=== PATIENT | male | born 1940 | race Caucasian/White ===

== ENCOUNTER 2021-05-31 19:12 | Emergency (ER) | payer MEDICARE, OTHER ==
[2021-05-31] MEDS ORDERED: Sodium Chloride 0.9% 10 ML Syringe FLUSH PRN (21:08)
[2021-05-31] MEDS ORDERED: Sodium Chloride 0.9% 2.5 ML Syringe FLUSH PRN (21:08)
--- NOTE | 2021-05-31 21:11 | EDM.PDOC ---
ED HPI GENERAL MEDICAL PROBLEM - General Chief Complaint: Abdominal Pain Stated Complaint: STOMACHE PAINS Time Seen by Provider: 05/31/21 20:56 - History of Present Illness INITIAL COMMENTS - FREE TEXT/NARRATIVE: History of present illness: [] Patient is not a good historian because of dementia. The family is here. They say that essentially almost every night for a month he has abdominal pain that significant but not causing him to cry bend over to get colicky and rock or complain of any needs to be rushed to the emergency department. He has not seen any primary doctor. He is has no nausea vomiting fever chills constipation or diarrhea. His urine outflow is normal. He does not complain of any mass. Review of systems: As per history of present illness and below otherwise all systems reviewed and negative. Past medical history: As per history of present illness and as reviewed below otherwise noncontributory. Surgical history: As per history of present illness and as reviewed below otherwise noncontributo ry. Social history: No reported history of drug or alcohol abuse. Family history: As per history of present illness and as reviewed below otherwise noncontributory. Physical exam: Constitutional - well developed, well-nourished and in no acute distress HEENT - normocephalic, no evidence of trauma - external nose and mouth normal - no mass in neck and no JVD - mucosae moist EYES - full EOM, PERRL, no icterus - no evidence of inflammation, injection, or drainage Respiratory - no respiratory distress, equal bilateral expansion, lungs clear to auscultation and no abnormal lung sounds Cardiovascular - Regular Rhythm with S1 and S2 appreciated and no murmur, gallop or rub. GI - abdomen soft-diffuse tenderness-without distension or organomegaly - normal bowel sounds - no guard or rebound no hernia normal external genitalia Musculoskeletal no gross deformity of long bones or joints - no tenderness, swelling or edema Neurologic - Alert and oriented times four - CN II-XII grossly intact - motor sensory and coordination symmetrically normal Psychiatric - appropriate mood and affect with normal thought content Hematologic - No petechiae or purpura - mucosa appropriate color and sclera not pale - normal nail bed color and refill Integument - no rash or evidence of trauma - normal turgor Diagnostics: [] Therapeutics: [] Impression: [] Plan: [] Definitive disposition and diagnosis as appropriate pending reevaluation and review of above. Lower Abdomen Pain Score (Numeric/FACES): 0 - Related Data Allergies Allergy/AdvReac Type Severity Reaction Status Date / Time No Known Allergies Allergy Verified 05/31/21 20:55 Social & Family History - Tobacco Use Tobacco Use Status *Q: Never Tobacco User Second Hand Smoke Exposure: No - Recreational Drug Use Recreational Drug Use: No ED ROS GENERAL - Review of Systems Review Of Systems: Comprehensive ROS is negative, except as noted in HPI. ED EXAM, GENERAL - Physical Exam Exam: See Below Free Text/Narrative:: My physical exam is in the HPI Course - Vital Signs Text/Narrative:: CT of the abdomen showed nothing that needed emergency intervention. There is a nodule in the prostate that needs to be evaluated by urology. Last Recorded V/S: Last Vital Signs Temp 36.4 C 05/31/21 20:50 Pulse 81 05/31/21 22:20 Resp 20 05/31/21 22:20 BP 123/67 05/31/21 22:20 Pulse Ox 96 05/31/21 22:20 - Orders/Labs/Meds Orders: Active Orders 24 hr Category Date Time Status Sodium Chloride 0.9% [Saline Flush] Med 05/31/21 21:08 Active 10 ml FLUSH ASDIRECTED PRN Sodium Chloride 0.9% [Saline Flush] Med 05/31/21 21:08 Active 2.5 ml FLUSH ASDIRECTED PRN Saline Lock Insert [OM.PC] Stat Oth 05/31/21 21:08 Ordered Medication Orders Sodium Chloride (Sodium Chloride 0.9% 10 Ml Syringe) 10 ml FLUSH ASDIRECTED PRN PRN Reason: Keep Vein Open Sodium Chloride (Sodium Chloride 0.9% 2.5 Ml Syringe) 2.5 ml FLUSH ASDIRECTED PRN PRN Reason: Keep Vein Open Labs: Laboratory Tests 05/31/21 05/31/21 05/31/21 Range/Units 21:00 21:25 21:25 WBC 9.93 (4.0-11.0) K/uL RBC 4.63 (4.50-5.90) M/uL Hgb 14.8 (13.0-17.0) g/dL Hct 43.5 (38.0-50.0) % MCV 94.0 (80.0-98.0) fL MCH 32.0 (27.0-32.0) pg MCHC 34.0 (31.0-37.0) g/dL RDW Std Deviation 45.7 (28.0-62.0) fl RDW Coeff of Urban 14 (11.0-15.0) % Plt Count 207 (150-400) K/uL MPV 10.30 (7.40-12.00) fL Neut % (Auto) 80.0 (48.0-80.0) % Lymph % (Auto) 11.8 L (16.0-40.0) % [place] % (Auto) 6.2 (0.0-15.0) % Eos % (Auto) 1.9 (0.0-7.0) % Baso % (Auto) 0.1 (0.0-1.5) % Neut # (Auto) 7.9 H (1.4-5.7) K/uL Lymph # (Auto) 1.2 (0.6-2.4) K/uL [place] # (Auto) 0.6 (0.0-0.8) K/uL Eos # (Auto) 0.2 (0.0-0.7) K/uL Baso # (Auto) 0.0 (0.0-0.1) K/uL Nucleated RBC % 0.0 /100WBC Nucleated RBCs # 0 K/uL Sodium 137 (136-148) mmol/L Potassium 4.9 (3.5-5.1) mmol/L Chloride 102 (98-107) mmol/L Carbon Dioxide 27.1 (21.0-32.0) mmol/L BUN 16 (7.0-18.0) mg/dL Creatinine 1.1 (0.8-1.3) mg/dL Est Cr Clr Drug Dosing 55.75 mL/min Estimated GFR (MDRD) > 60.0 ml/min Glucose 125 H (74-106) mg/dL Lactic Acid (0.4-2.0) mmol/L Calcium 8.2 L (8.5-10.1) mg/dL Total Bilirubin 0.4 (0.2-1.0) mg/dL AST 31 (15-37) IU/L ALT 22 (14-63) IU/L Alkaline Phosphatase 130 H (46-116) U/L Total Protein 6.6 (6.4-8.2) g/dL Albumin 3.4 (3.4-5.0) g/dL Globulin 3.2 (2.6-4.0) g/dL Albumin/Globulin Ratio 1.1 (0.9-1.6) Lipase 345 (73-393) U/L Urine Color YELLOW Urine Appearance CLEAR Urine pH 6.0 (5.0-8.0) Ur Specific [place] 1.025 (1.001-1.035) Urine Protein NEGATIVE (NEGATIVE) mg/dL Urine Glucose (UA) NEGATIVE (NEGATIVE) mg/dL Urine Ketones NEGATIVE (NEGATIVE) mg/dL Urine Occult Blood NEGATIVE (NEGATIVE) Urine Nitrite NEGATIVE (NEGATIVE) Urine Bilirubin NEGATIVE (NEGATIVE) Urine Urobilinogen 0.2 (<2.0) EU/dL Ur Leukocyte Esterase NEGATIVE (NEGATIVE) 05/31/21 Range/Units 21:25 WBC (4.0-11.0) K/uL RBC (4.50-5.90) M/uL Hgb (13.0-17.0) g/dL Hct (38.0-50.0) % MCV (80.0-98.0) fL MCH (27.0-32.0) pg MCHC (31.0-37.0) g/dL RDW Std Deviation (28.0-62.0) fl RDW Coeff of Urban (11.0-15.0) % Plt Count (150-400) K/uL MPV (7.40-12.00) fL Neut % (Auto) (48.0-80.0) % Lymph % (Auto) (16.0-40.0) % [place] % (Auto) (0.0-15.0) % Eos % (Auto) (0.0-7.0) % Baso % (Auto) (0.0-1.5) % Neut # (Auto) (1.4-5.7) K/uL Lymph # (Auto) (0.6-2.4) K/uL [place] # (Auto) (0.0-0.8) K/uL Eos # (Auto) (0.0-0.7) K/uL Baso # (Auto) (0.0-0.1) K/uL Nucleated RBC % /100WBC Nucleated RBCs # K/uL Sodium (136-148) mmol/L Potassium (3.5-5.1) mmol/L Chloride (98-107) mmol/L Carbon Dioxide (21.0-32.0) mmol/L BUN (7.0-18.0) mg/dL Creatinine (0.8-1.3) mg/dL Est Cr Clr Drug Dosing mL/min Estimated GFR (MDRD) ml/min Glucose (74-106) mg/dL Lactic Acid 1.4 (0.4-2.0) mmol/L Calcium (8.5-10.1) mg/dL Total Bilirubin (0.2-1.0) mg/dL AST (15-37) IU/L ALT (14-63) IU/L Alkaline Phosphatase (46-116) U/L Total Protein (6.4-8.2) g/dL Albumin (3.4-5.0) g/dL Globulin (2.6-4.0) g/dL Albumin/Globulin Ratio (0.9-1.6) Lipase (73-393) U/L Urine Color Urine Appearance Urine pH (5.0-8.0) Ur Specific [place] (1.001-1.035) Urine Protein (NEGATIVE) mg/dL Urine Glucose (UA) (NEGATIVE) mg/dL Urine Ketones (NEGATIVE) mg/dL Urine Occult Blood (NEGATIVE) Urine Nitrite (NEGATIVE) Urine Bilirubin (NEGATIVE) Urine Urobilinogen (<2.0) EU/dL Ur Leukocyte Esterase (NEGATIVE) Meds: Medications Generic Name Dose Route Start Last Admin Trade Name Freq PRN Reason Stop Dose Admin Sodium Chloride 10 ml 05/31/21 21:08 Sodium Chloride 0.9% 10 Ml Syringe FLUSH ASDIRECTED PRN Keep Vein Open Sodium Chloride 2.5 ml 05/31/21 21:08 Sodium Chloride 0.9% 2.5 Ml Syringe FLUSH ASDIRECTED PRN Keep Vein Open Discontinued Medications Generic Name Dose Route Start Last Admin Trade Name Freq PRN Reason Stop Dose Admin Iopamidol 100 ml 05/31/21 22:05 05/31/21 22:50 Iopamidol 755 Mg/Ml 100 Ml Bottle IVPUSH 05/31/21 22:06 100 ml ONETIME ONE Administration Departure - Departure Time of Disposition: 23:30 Disposition: Home, Self-Care 01 Condition: Good Clinical Impression: Abdominal pain - Discharge Information Referrals: Justin Easley MD [Primary Care Provider] - Leila Resendiz DO [Ordering Only Provider] - Forms: ED Department Discharge Additional Instructions: Patient needs to be seen by urology because of the mass in the prostate that is most likely benign but certainly needs to be reevaluated. If the patient continues to have pain the primary care will refer him to gastroenterology or he can have endoscopy by the surgeons here in town. [facility] - General Surgery Professional [address], [address] [place] [address] The following information is given to patients seen in the emergency department who are being discharged to home. This information is to outline your options for follow-up care. We provide all patients seen in our emergency department with a follow-up referral. The need for follow-up, as well as the timing and circumstances, are variable depending upon the specifics of your emergency department visit. If you don't have a primary care physician on staff, we will provide you with a referral. We always advise you to contact your personal physician following an emergency department visit to inform them of the circumstance of the visit and for follow-up with them and/or the need for any referrals to a consulting specialist. The emergency department will also refer you to a specialist when appropriate. This referral assures that you have the opportunity for follow-up care with a specialist. All of these measure are taken in an effort to provide you with optimal care, which includes your follow-up. Under all circumstances we always encourage you to contact your private physician who remains a resource for coordinating your care. When calling for follow-up care, please make the office aware that this follow-up is from your recent emergency room visit. If for any reason you are refused follow-up, please contact the [facility] Emergency Department at and asked to speak to the emergency department charge nurse. Sepsis Event Note (ED) - Focused Exam Vital Signs: Vital Signs Temp Pulse Resp BP Pulse Ox 05/31/21 22:20 81 20 123/67 96 05/31/21 20:50 36.4 C 76 16 146/80 H 95 - My Orders Last 24 Hours: My Active Orders 08/25/21 21:08 Sodium Chloride 0.9% [Saline Flush] 10 ml FLUSH ASDIRECTED PRN Sodium Chloride 0.9% [Saline Flush] 2.5 ml FLUSH ASDIRECTED PRN Saline Lock Insert [OM.PC] Stat - Assessment/Plan Last 24 Hours: My Active Orders 05/31/21 21:08 Sodium Chloride 0.9% [Saline Flush] 10 ml FLUSH ASDIRECTED PRN Sodium Chloride 0.9% [Saline Flush] 2.5 ml FLUSH ASDIRECTED PRN Saline Lock Insert [OM.PC] Stat
[2021-05-31 21:55] LABS: BLOOD UREA NITROGEN,BUN 16 mg/dL (7.0-18.0); CARBON DIOXIDE,CO2 27.1 mmol/L (21.0-32.0); CHLORIDE,CL 102 mmol/L (98-107); GLUCOSE RANDOM 125 mg/dL (74-106); LIPASE 345 U/L (73-393); POTASSIUM,K 4.9 mmol/L (3.5-5.1); SODIUM,NA 137 mmol/L (136-148)
[2021-05-31] MEDS ORDERED: Iopamidol 755 Mg/ML 100 ML Bottle IVPUSH ONE (22:05)
--- NOTE | 2021-05-31 23:27 | CT ---
INDICATION: Abdominal pain. COMPARISON: None available TECHNIQUE: CT examination of the abdomen and pelvis was performed with the uneventful intravenous administration of 100 cc of Isovue 370 while 2.5 mm thick axial sections were obtained from the lung bases through the pubic symphysis. Oral contrast was not administered. Please note that all CT scans at this facility use dose modulation, iterative reconstruction, and/or weight-based dosing when appropriate to reduce radiation dose to as low as reasonably achievable. FINDINGS: There is a moderate amount of fluid seen throughout the colon in the abdomen, nonspecific. There is formed fecal material in the sigmoid colon and rectum. In the abdomen, the liver, spleen, pancreas, and adrenals are normal in appearance. The kidneys are normal in appearance. The gallbladder is normal in appearance. The abdominal aorta is normal in caliber with no sign of dilatation. There is no sign of retroperitoneal mass or adenopathy. The stomach, loops of small bowel, and right colon in the abdomen are normal in appearance. There is severe diverticulosis of the descending colon with no sign of diverticulitis. In the pelvis, the appendix is normal in appearance with no sign of inflammatory process. There is severe sigmoid diverticulosis without evidence of diverticulitis. The loops of small bowel and colon in the pelvis are otherwise normal in appearance. The prostate has a central TURP defect. It is moderately enlarged. There is a slightly dense nodule arising from the superior central prostate projecting into the base of the bladder measuring 11 millimeters in diameter. Prostate malignancy cannot be excluded. The urinary bladder is otherwise normal in appearance. There is no sign of pelvic or inguinal mass or adenopathy. There is a small right inguinal hernia containing fluid superiorly and fat inferiorly. There is no sign of herniation of bowel. There is a small fat containing left inguinal hernia. There is no sign of free air or free fluid in the abdomen or pelvis. There is moderate patchy density in the posterior lung bases, left greater than right, probably scarring from previous inflammatory disease. There are sternal wires from median sternotomy. Leads from a pacemaker terminate in the right atrium and right ventricle. There is mild triple-vessel coronary calcification. The heart is normal in size. There is moderate scoliosis of the upper lumbar spine convex towards the right. There is severe disc degenerative disease at L3-4, L4-5, and L5-S1 related to the scoliosis. Note is made of a lumbarized S1 segment. IMPRESSION: CT of the abdomen shows fluid distributed throughout the nondistended colon in the abdomen, nonspecific. Severe diverticulosis of the descending colon with no sign of diverticulitis. CT of the pelvis shows severe diverticulosis of the sigmoid colon with no sign of diverticulitis. TURP defect in moderately enlarged prostate. 11 millimeter nodule projects superiorly from the prostate into the urinary bladder, nonspecific. Cannot exclude prostate malignancy. Small bilateral inguinal hernias, containing fat and fluid on the right and only fat on the left. Please note that all CT scans at this facility use dose modulation, iterative reconstruction, and/or weight-based dosing when appropriate to reduce radiation dose to as low as reasonably achievable. Dictated by Yohan Serrato MD @ 05/31/2021 11:24:[address] Yohan Serrato @ May 31 2021 11:24PM
== END 2021-05-31 23:45 | disposition home or self-care (01) ==
LOC: MW.ED 19:12
DX: R10.9 Unspecified abdominal pain (principal); R10.817 Generalized abdominal tenderness
CPT/HCPCS: 36415; 74177; 80053; 81003; 83605; 83690; 85025; 99284; Q9967

== ENCOUNTER 2021-09-18 10:49 | Emergency (ER) | payer MEDICARE, OTHER ==
[2021-09-18] MEDS ORDERED: Sodium Chloride 0.9% 2.5 ML Syringe FLUSH PRN (11:01)
[2021-09-18] MEDS ORDERED: Sodium Chloride 0.9% 10 ML Syringe FLUSH PRN (11:01)
--- NOTE | 2021-09-18 11:32 | PCM.EKG ---
#1 Interpretation Time: 11:16 EKG Interpretation Comments: EKG: NSR, nonspecific ST/T changes, Rate -71
[2021-09-18 12:13] LABS: BLOOD UREA NITROGEN,BUN 17 mg/dL (7.0-18.0); CARBON DIOXIDE,CO2 27.1 mmol/L (21.0-32.0); CHLORIDE,CL 101 mmol/L (98-107); GLUCOSE RANDOM 153 mg/dL (74-106); POTASSIUM,K 4.6 mmol/L (3.5-5.1); SODIUM,NA 138 mmol/L (136-148)
--- NOTE | 2021-09-18 12:39 | CT ---
INDICATION: Head injury. Fell. TECHNIQUE: Scanning of the head was performed without IV contrast material. Coronal and sagittal reconstructions were obtained. COMPARISON: Today`s cervical spine CT. FINDINGS: No acute intracranial hemorrhage or positive mass effect is demonstrated. A left forehead laceration is noted. No calvarial or obvious facial fracture is identified. The visualized paranasal and mastoid sinuses are clear. The ventricles and other subarachnoid spaces are within normal limits for the patient`s age. 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 There is patchy nonspecific decreased attenuation in the cerebral white matter which is most likely due to aging/chronic microvascular ischemic disease. IMPRESSION: 1. Negative for acute intracranial abnormality. 2. Left forehead laceration. 3. 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 4. Patchy nonspecific cerebral white matter disease which is most likely due to aging/chronic microvascular ischemia. Please note that all CT scans at this facility use dose modulation, iterative reconstruction, and/or weight-based dosing when appropriate to reduce radiation dose to as low as reasonably achievable. Dictated by Joaquín Ding MD @ 09/18/2021 12:38:15 PM (Electronically Signed)
--- NOTE | 2021-09-18 12:49 | CT ---
INDICATION: Neck injury. Fell. TECHNIQUE: Volumetric helical scanning of the cervical spine was performed without contrast material. Sagittal and coronal reconstructions were also obtained. COMPARISON: Today`s head CT. FINDINGS: Acute fracture of the odontoid base (type 2) is demonstrated with 5 mm posterior displacement of the odontoid with respect to the C2 body. Acute nondisplaced lateral C1 arch fractures are demonstrated bilaterally. No other fracture or subluxation is noted Multilevel spondylosis is demonstrated. IMPRESSION: 1. Acute type 2 odontoid fracture with 5 mm posterior displacement of the odontoid with respect to the C2 body. 2. Acute nondisplaced lateral C1 arch fractures bilaterally. 3. Multilevel spondylosis. These findings were discussed with Nessa Long PA-C at 12:45 p.m. on 09/18/2021. Please note that all CT scans at this facility use dose modulation, iterative reconstruction, and/or weight-based dosing when appropriate to reduce radiation dose to as low as reasonably achievable. Dictated by Joaquín Ding MD @ 09/18/2021 12:47:36 PM (Electronically Signed)
--- NOTE | 2021-09-18 13:12 | CR ---
INDICATION: Trauma COMPARISON: None TECHNIQUE: Single view AP portable chest radiograph FINDINGS: TUBES AND LINES: Left-sided pacer with leads in the right atrium and the right ventricle. HEART AND MEDIASTINUM: Sternotomy. Normal size heart.. LUNGS AND PLEURAL SPACES: Patchy ground-glass opacities in the right midlung favor inflammatory over traumatic.No pleural effusion or pneumothorax OSSEOUS STRUCTURES: Demineralization and degenerative change. No visible fracture or destructive process IMPRESSION: 1. Pacer. Sternotomy. 2. Mild patchy ground-glass opacities in the right midlung favor inflammatory over traumatic. 3. No visible fracture or destructive process involving the visualized osseous structures Dictated by All Thomas MD @ 09/18/2021 1:10:46 PM (Electronically Signed)
--- NOTE | 2021-09-18 13:16 | CR ---
Indication: Fall with pain. Technique: Pelvis AP 1 views. Comparison: None. Findings: Bones: Alignment is normal. No fractures or bone lesions. Joint spaces: Moderate bilateral hip joint osteoarthritis. No other specific finding to explain pain. Soft tissues: Unremarkable. Dictated by Edd Cho MD @ 09/18/2021 1:15:47 PM (Electronically Signed)
[2021-09-18] MEDS ORDERED: Lidocaine 1% with EPINEPHrine 1:100,000 20 ML MDV ONE (13:19)
--- NOTE | 2021-09-18 13:23 | CR ---
Indication: Fall with pain. Technique: Bilateral knee 4 views. Comparison: None. Findings: Bones: Alignment is normal. No fractures or bone lesions. Joint spaces: Unremarkable. No significant degenerative changes and no joint effusion. Soft tissues: Unremarkable. Impression: No sign of acute injury. Dictated by Edd Cho MD @ 09/18/2021 1:21:13 PM (Electronically Signed)
[2021-09-18] MEDS ORDERED: Morphine 2 MG/ML SYRINGE IVPUSH ONE (13:56)
[2021-09-18] MEDS ORDERED: Ondansetron 4 MG/2 ML SDV IVPUSH ONE (13:56)
[2021-09-18] MEDS ORDERED: Bacitracin Oint 1 GM U/D Packet ONE (14:05)
[2021-09-18] MEDS ORDERED: Bacitracin Oint 1 GM U/D Packet TOP STA (14:25)
[2021-09-18] MEDS ORDERED: Lidocaine 1% with EPINEPHrine 1:100,000 20 ML MDV INJECT ONE (15:00)
--- NOTE | 2021-09-18 15:07 | EDM.PDOC ---
ED HPI GENERAL MEDICAL PROBLEM - General Chief Complaint: Head Injury Stated Complaint: fall, hit head Time Seen by Provider: 09/18/21 10:50 Source of Information: Reports: Patient History Limitations: Reports: No Limitations - History of Present Illness INITIAL COMMENTS - FREE TEXT/NARRATIVE: HISTORY AND PHYSICAL: History of present illness: Patient is an 80-year-old male, with a history of type 2 diabetes, hyperlipidemia, and dementia, who presents emergency room today with concern of a fall. According to who witnessed the fall, patient had got up to use the restroom. states that patient does have a limited gait at baseline and uses a cane. Patient did not use a cane to go to the bathroom and patient states that his legs felt weak and he fell forward. Patient's states he hit his forehead on the kitchen chair but did not lose consciousness. She states that she called the ambulance immediately but did sit him up from a laying position. Patient states that he has pain of his forehead and his neck and denies any other symptoms. Patient states that he is fully able to move his legs and arms and has no other resuscitative symptoms. states that patient is up-to-date on his tetanus vaccine within 5 years. Patient is not on any blood thinning medication. Patient denies fever, chills, chest pain, shortness of breath, or cough. Denies change in vision, syncope, or near syncope. Denies nausea, vomiting, abdominal pain, diarrhea, constipation, or dysuria. Has not noted any blood in urine or stool. Patient has been eating and drinking appropriately. Review of systems: As per history of present illness and below otherwise all systems reviewed and negative. Past medical history: As per history of present illness and as reviewed below otherwise noncontributory. Surgical history: As per history of present illness and as reviewed below otherwise noncontributory. Social history: See social history for further information Family history: As per history of present illness and as reviewed below otherwise noncontributory. Physical exam: General: Patient is alert, oriented, and in no acute distress. Patient laying comfortably on exam table. Patient is in a hard cervical collar via EMS. Vitals stable and reviewed by me. HEENT: There is a large 7 cm subcutaneous laceration of the forehead and a skin tear of the right cheek. There is also a small superficial abrasion at the bridge of the nose and left side of the cheek. Otherwise, atraumatic, normocephalic, pupils equal and reactive bilaterally, negative for conjunctival pallor or scleral icterus, mucous membranes moist, throat clear, neck supple, nontender, trachea midline. No drooling or trismus noted. No meningeal signs. No hot potato voice noted. Lungs: Clear to auscultation, breath sounds equal bilaterally, chest nontender. Heart: S1S2, regular rate and rhythm without overt murmur Abdomen: Soft, nondistended, nontender. Negative for masses or hepatospl enomegaly. Negative for costovertebral tenderness. Pelvis: Stable nontender. Genitourinary: Deferred. Rectal: Deferred. Skin: Intact, warm, dry. No lesions or rashes noted. Extremities: No obvious deformity of the complete spine. No step-offs, or crepitus to palpation of the complete spine. Patient does have tenderness to palpation of C1-C4 of the cervical spine but no remainder tenderness of the remainder spine. Patient is fully able to move all extremities with intact sensation of all extremities. Bilateral radial pulses are grossly intact. Bilateral dorsalis pedis and posterior tibial pulses are grossly intact. Otherwise, atraumatic, negative for cords or calf pain. Neurovascular unremarkable. Neuro: Awake, alert, oriented. Cranial nerves II through XII unremarkable. Cerebellum unremarkable. Motor and sensory unremarkable throughout. Exam nonfocal. Medical Decision Making: Patient is an 80-year-old male with a history of type 2 diabetes, hyperlipidemia, and dementia who presents emergency room today with concern of a fall. Upon arrival to the ED, via EMS, patient does have a hard cervical collar in place. Patient does complain of pain at the area of laceration of his fo rehead and his neck. On examination, patient does have a large 7 cm subcutaneous laceration of the forehead with adjacent skin tear of the right cheek and small superficial abrasion overlying the bridge of the nose and left side of the cheek. The large laceration bleeding so a pressure dressing applied. Patient does have tenderness of the cervical spine so will leave the hard collar in place and image head and neck CT. Will also obtain cardiac evaluation and pelvic XR due to fall. See Dr. Frost's dictation for specific EKG interpretation. Otherwise, normal sinus rhythm without STEMI. CBC mild derangements are unremarkable. CMP does show an elevation of glucose at 153, isolated elevation of alk phos at 133. Troponin negative. COVID-19 negative. Otherwise mild derangements of CMP unremarkable. Cervical spine CT does show an acute type II odontoid fracture with 5 mm posterior displacement of the odontoid with respect to the C2 body. Acute nondisplaced lateral C1 arch fracture bilaterally. Multilevel spondylosis. Head CT shows negative for acute intracranial abnormality. Left forehead laceration. 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 Patchy nonspecific cerebral white matter disease which is most likely due to aging/chronic microvascular ischemia. Pelvic x-ray shows no acute findings. Chest x-ray shows a pacer. Sternotomy. Mild patchy groundglass opacities in the right midlung favor inflammatory over traumatic. No visible fracture or destructive process involving the visualized osseous structures. Bilateral knees show no acute injury. [facility] at [facility] at [facility]. However, I did speak to Dr. Segura, neurosurgeon who states opioid management is alright to use with this fracture type. Also states that patient is able to sit up (patient is uncomfortable laying flat and requesting to sit up). Will give morphine and zofran. [facility] at [facility] I did speak to Dr. Chavez, ED provider at [facility]. Agreeable to transfer. Flight arranged. See procedure note below for suturing. Upon reevaluation of patient, he remains vitally stable and well-appearing on exam. Patient is much more comfortable with sitting with the head of the bed up. Hard cervical collar remains in place. Patient remains neurovascularly intact. Flight at bedside. Patient transferred to flight in stable condition. Diagnostics: CBC, CMP, UA, chest x-ray, troponin, head CT, cervical spine CT, 1 view chest x- ray, 1 view pelvis, bilateral knees Therapeutics: Saline lock, morphine, Zofran Impression: Acute odontoid fracture, type 2, unstable Head injury Forehead laceration Skin tear Superficial abrasions Fall Plan: Transfer to Dr. Chavez, ED at [facility] via flight\ Critical care time is exclusive of billable procedures and the time to perform these procedures. Critical care time was used to prevent vital system organ failure and deterioration. Critical care time includes bedside management and high-complexity decision making requiring my highest level of mental preparedness and attention. This includes reviewing the patient's chart and prior medical records, ordering and reviewing interpreting laboratory studies and imaging results, interpretation of vital signs and EKG, pulse oximetry, and discussion with the admitting team along with EMS and nursing staff. Patient presented with multiple critical lab values that required immediate intervention, acute respiratory failure requiring Bipap and immediate transfer to the ICU for additional close monitoring and continuation of treatment CC Time: 60 minutes Definitive disposition and diagnosis as appropriate pending reevaluation and review of above. face Pain Score (Numeric/FACES): 6 - Related Data Allergies Allergy/AdvReac Type Severity Reaction Status Date / Time No Known Allergies Allergy Verified 09/18/21 10:59 Home Meds: Home Meds Famotidine 40 mg PO BEDTIME 09/18/21 [History] Metoprolol Succinate 25 mg PO DAILY 09/18/21 [History] QUEtiapine Fumarate [Quetiapine Fumarate] 12.5 - 25 mg PO DAILY 09/18/21 [History] atorvaSTATin Calcium [Atorvastatin Calcium] 20 mg PO DAILY 09/18/21 [History] metFORMIN HCl [Metformin HCl] 500 mg PO DAILY 09/18/21 [History] Past Medical History HEENT History: Reports: Impaired Vision Cardiovascular History: Reports: High Cholesterol, Hypertension Neurological History: Reports: Alzheimers Disease, Other (See Below) Other Neuro History: dementia Psychiatric History: Reports: Alzheimers Disease, Dementia Endocrine/Metabolic History: Reports: Diabetes, Type II - Infectious Disease History Infectious Disease History: Reports: Chicken Pox, Measles ED ROS GENERAL - Review of Systems Review Of Systems: Comprehensive ROS is negative, except as noted in HPI. ED EXAM, GENERAL - Physical Exam Exam: See Below (see dictation) ED GENERAL MEDICAL PROCEDURES - Laceration/Wound Repair Middle Forehead Lac/wound length in cm: 7 Appearance: Subcutaneous, Irregular, Clean Distal NVT: Neuro & Vascular Intact, No Tendon Injury Anesthetic Type: Local Local Anesthesia - Bupivicaine (Marcaine): 0.5% with EPI Local Anesthetic Volume: Other (10cc) Saline irrigation (cc's): 250 Exploration/Debridement/Repair: Wound Explored, Explored to Base, No Foreign Material Found Closed with: Sutures Suture Size: 5-0 # of Sutures: 14 Suture Type: Interrupted, Other (chromic gut) Drain Placement: No Sterile Dressing Applied: Provider Tetanus Status Addressed: Yes (up to date) Complications: No Course - Vital Signs Last Recorded V/S: Last Vital Signs Temp 98.1 F 09/18/21 15:02 Pulse 85 09/18/21 15:02 Resp 16 09/18/21 15:02 BP 134/75 09/18/21 15:02 Pulse Ox 97 09/18/21 15:02 - Orders/Labs/Meds Orders: Active Orders 24 hr Category Date Time Status Cardiac Monitoring [RC] . DIRECTED Care 09/18/21 11:01 Active CULTURE URINE [MREF] Stat Lab 09/18/21 14:49 Received Sodium Chloride 0.9% [Saline Flush] Med 09/18/21 11:01 Active 10 ml FLUSH ASDIRECTED PRN Sodium Chloride 0.9% [Saline Flush] Med 09/18/21 11:01 Active 2.5 ml FLUSH ASDIRECTED PRN Saline Lock Insert [OM.PC] Stat Oth 09/18/21 11:01 Ordered Medication Orders Sodium Chloride (Sodium Chloride 0.9% 10 Ml Syringe) 10 ml FLUSH ASDIRECTED PRN PRN Reason: Keep Vein Open Last Admin: 09/18/21 11:33 Dose: 10 ml Documented by: DELFINO Sodium Chloride (Sodium Chloride 0.9% 2.5 Ml Syringe) 2.5 ml FLUSH ASDIRECTED PRN PRN Reason: Keep Vein Open Last Admin: 09/18/21 11:33 Dose: 2.5 ml Documented by: DELFINO Labs: Laboratory Tests 09/18/21 09/18/21 09/18/21 Range/Units 11:30 11:30 13:03 WBC 9.60 (4.0-11.0) K/uL RBC 4.56 (4.50-5.90) M/uL Hgb 14.7 (13.0-17.0) g/dL Hct 43.8 (38.0-50.0) % MCV 96.1 (80.0-98.0) fL MCH 32.2 H (27.0-32.0) pg MCHC 33.6 (31.0-37.0) g/dL RDW Std Deviation 47.8 (28.0-62.0) fl RDW Coeff of Urban 14 (11.0-15.0) % Plt Count 175 (150-400) K/uL MPV 10.40 (7.40-12.00) fL Neut % (Auto) 83.8 H (48.0-80.0) % Lymph % (Auto) 7.6 L (16.0-40.0) % [place] % (Auto) 6.3 (0.0-15.0) % Eos % (Auto) 2.1 (0.0-7.0) % Baso % (Auto) 0.2 (0.0-1.5) % Neut # (Auto) 8.1 H (1.4-5.7) K/uL Lymph # (Auto) 0.7 (0.6-2.4) K/uL [place] # (Auto) 0.6 (0.0-0.8) K/uL Eos # (Auto) 0.2 (0.0-0.7) K/uL Baso # (Auto) 0.0 (0.0-0.1) K/uL Nucleated RBC % 0.0 /100WBC Nucleated RBCs # 0 K/uL Sodium 138 (136-148) mmol/L Potassium 4.6 (3.5-5.1) mmol/L Chloride 101 (98-107) mmol/L Carbon Dioxide 27.1 (21.0-32.0) mmol/L BUN 17 (7.0-18.0) mg/dL Creatinine 1.2 (0.8-1.3) mg/dL Est Cr Clr Drug Dosing 54.56 mL/min Estimated GFR (MDRD) 58.1 ml/min Glucose 153 H (74-106) mg/dL Calcium 8.8 (8.5-10.1) mg/dL Total Bilirubin 0.5 (0.2-1.0) mg/dL AST 19 (15-37) IU/L ALT 21 (14-63) IU/L Alkaline Phosphatase 133 H (46-116) U/L Troponin I < 0.050 (0.000-0.056) ng/mL Total Protein 6.5 (6.4-8.2) g/dL Albumin 3.2 L (3.4-5.0) g/dL Globulin 3.3 (2.6-4.0) g/dL Albumin/Globulin Ratio 1.0 (0.9-1.6) Urine Color Urine Appearance Urine pH (5.0-8.0) Ur Specific [place] (1.001-1.035) Urine Protein (NEGATIVE) mg/dL Urine Glucose (UA) (NEGATIVE) mg/dL Urine Ketones (NEGATIVE) mg/dL Urine Occult Blood (NEGATIVE) Urine Nitrite (NEGATIVE) Urine Bilirubin (NEGATIVE) Urine Urobilinogen (<2.0) EU/dL Ur Leukocyte Esterase (NEGATIVE) Urine RBC (0-2/HPF) Urine WBC (0-5/HPF) Ur Epithelial Cells (NONE-FEW) Urine Bacteria (NEGATIVE) Urine Mucus (NONE-MOD) SARS-CoV-2 RNA (FROY) NEGATIVE (NEGATIVE) 09/18/21 Range/Units 14:49 WBC (4.0-11.0) K/uL RBC (4.50-5.90) M/uL Hgb (13.0-17.0) g/dL Hct (38.0-50.0) % MCV (80.0-98.0) fL MCH (27.0-32.0) pg MCHC (31.0-37.0) g/dL RDW Std Deviation (28.0-62.0) fl RDW Coeff of Urban (11.0-15.0) % Plt Count (150-400) K/uL MPV (7.40-12.00) fL Neut % (Auto) (48.0-80.0) % Lymph % (Auto) (16.0-40.0) % [place] % (Auto) (0.0-15.0) % Eos % (Auto) (0.0-7.0) % Baso % (Auto) (0.0-1.5) % Neut # (Auto) (1.4-5.7) K/uL Lymph # (Auto) (0.6-2.4) K/uL [place] # (Auto) (0.0-0.8) K/uL Eos # (Auto) (0.0-0.7) K/uL Baso # (Auto) (0.0-0.1) K/uL Nucleated RBC % /100WBC Nucleated RBCs # K/uL Sodium (136-148) mmol/L Potassium (3.5-5.1) mmol/L Chloride (98-107) mmol/L Carbon Dioxide (21.0-32.0) mmol/L BUN (7.0-18.0) mg/dL Creatinine (0.8-1.3) mg/dL Est Cr Clr Drug Dosing mL/min Estimated GFR (MDRD) ml/min Glucose (74-106) mg/dL Calcium (8.5-10.1) mg/dL Total Bilirubin (0.2-1.0) mg/dL AST (15-37) IU/L ALT (14-63) IU/L Alkaline Phosphatase (46-116) U/L Troponin I (0.000-0.056) ng/mL Total Protein (6.4-8.2) g/dL Albumin (3.4-5.0) g/dL Globulin (2.6-4.0) g/dL Albumin/Globulin Ratio (0.9-1.6) Urine Color YELLOW Urine Appearance HAZY Urine pH 6.0 (5.0-8.0) Ur Specific [place] 1.025 (1.001-1.035) Urine Protein NEGATIVE (NEGATIVE) mg/dL Urine Glucose (UA) NEGATIVE (NEGATIVE) mg/dL Urine Ketones NEGATIVE (NEGATIVE) mg/dL Urine Occult Blood NEGATIVE (NEGATIVE) Urine Nitrite POSITIVE H (NEGATIVE) Urine Bilirubin NEGATIVE (NEGATIVE) Urine Urobilinogen 1.0 (<2.0) EU/dL Ur Leukocyte Esterase NEGATIVE (NEGATIVE) Urine RBC 0-2 (0-2/HPF) Urine WBC 2-5 (0-5/HPF) Ur Epithelial Cells OCCASIONAL (NONE-FEW) Urine Bacteria 3+ H (NEGATIVE) Urine Mucus LIGHT (NONE-MOD) SARS-CoV-2 RNA (FROY) (NEGATIVE) Meds: Medications Generic Name Dose Route Start Last Admin Trade Name Freq PRN Reason Stop Dose Admin Sodium Chloride 10 ml 09/18/21 11:01 09/18/21 11:33 Sodium Chloride 0.9% 10 Ml Syringe FLUSH 10 ml ASDIRECTED PRN Administration Keep Vein Open Sodium Chloride 2.5 ml 09/18/21 11:01 09/18/21 11:33 Sodium Chloride 0.9% 2.5 Ml Syringe FLUSH 2.5 ml ASDIRECTED PRN Administration Keep Vein Open Discontinued Medications Generic Name Dose Route Start Last Admin Trade Name Freq PRN Reason Stop Dose Admin Bacitracin Confirm 09/18/21 14:05 09/18/21 14:34 Bacitracin Oint 1 Gm U/D Packet Administered 09/18/21 14:06 Not Given Dose 1 dose .ROUTE .STK-MED ONE Bacitracin 1 dose 09/18/21 14:25 09/18/21 14:34 Bacitracin Oint 1 Gm U/D Packet TOP 09/18/21 14:26 1 dose ONETIME STA Administration Lidocaine HCl Confirm 09/18/21 13:15 09/18/21 14:16 Lidocaine 1% 5 Ml Sdv Administered 09/18/21 13:16 Not Given Dose 5 ml .ROUTE .STK-MED ONE Lidocaine/Epinephrine Confirm 09/18/21 13:19 09/18/21 14:14 Lidocaine 1% With Epinephrine 1:100,000 20 Ml Mdv Administered 09/18/21 13:20 20 ml Dose Administration 20 ml .ROUTE .STK-MED ONE Lidocaine/Epinephrine 20 ml 09/18/21 15:00 09/18/21 15:02 Lidocaine 1% With Epinephrine 1:100,000 20 Ml Mdv INJECT 09/18/21 15:01 20 ml ONETIME ONE Administration Morphine Sulfate 2 mg 09/18/21 13:56 09/18/21 14:17 Morphine 2 Mg/Ml Syringe IVPUSH 09/18/21 13:57 2 mg ONETIME ONE Administration Ondansetron HCl 4 mg 09/18/21 13:56 09/18/21 14:17 Ondansetron 4 Mg/2 Ml Sdv IVPUSH 09/18/21 13:57 4 mg ONETIME ONE Administration Departure - Departure Time of Disposition: 15:38 Disposition: DC/Tfer to Acute Hospital 02 Clinical Impression: Odontoid fracture with type II morphology, Head injury, Forehead laceration, Skin tear, Superficial abrasion, Fall - Discharge Information Referrals: Justin Easley MD [Primary Care Provider] - Forms: ED Department Discharge Sepsis Event Note (ED) - Evaluation Sepsis Screening Result: No Definite Risk - Focused Exam Vital Signs: Vital Signs Temp Pulse Resp BP Pulse Ox 09/18/21 15:02 98.1 F 85 16 134/75 97 09/18/21 14:13 80 137/70 98 09/18/21 13:13 65 136/66 98 09/18/21 12:13 67 125/59 L 95 09/18/21 11:00 97.0 F 72 18 132/72 96 - My Orders Last 24 Hours: My Active Orders 09/18/21 11:01 Cardiac Monitoring [RC] . DIRECTED Sodium Chloride 0.9% [Saline Flush] 10 ml FLUSH ASDIRECTED PRN Sodium Chloride 0.9% [Saline Flush] 2.5 ml FLUSH ASDIRECTED PRN Saline Lock Insert [OM.PC] Stat 09/18/21 14:49 CULTURE URINE [MREF] Stat - Assessment/Plan Last 24 Hours: My Active Orders 09/18/21 11:01 Cardiac Monitoring [RC] . DIRECTED Sodium Chloride 0.9% [Saline Flush] 10 ml FLUSH ASDIRECTED PRN Sodium Chloride 0.9% [Saline Flush] 2.5 ml FLUSH ASDIRECTED PRN Saline Lock Insert [OM.PC] Stat 09/18/21 14:49 CULTURE URINE [MREF] Stat
== END 2021-09-18 17:15 ==
LOC: MW.ED 10:49
DX: S12.110A Anterior displaced Type II dens fracture, initial encounter for closed fracture (principal); S01.81XA Laceration without foreign body of other part of head, initial encounter; E78.00 Pure hypercholesterolemia, unspecified; I10 Essential (primary) hypertension; E11.9 Type 2 diabetes mellitus without complications; Z79.899 Other long term (current) drug therapy; Z79.84 Long term (current) use of oral hypoglycemic drugs; Z20.822 Contact with and (suspected) exposure to COVID-19; W18.09XA Striking against other object with subsequent fall, initial encounter; Y92.000 Kitchen of unspecified non-institutional (private) residence as the place of occurrence of the external cause
CPT/HCPCS: 12014; 36415; 70450; 71045; 72125; 72170; 73560; 80053; 81001; 84484; 85025; 87086; 93005; 96374; 96375; 99285; J2270; J2405; U0002